=== PATIENT | male | born 1940 | race Caucasian/White ===

== ENCOUNTER 2018-07-09 07:59 | Inpatient (IN) | payer MEDICARE ==
--- NOTE | 2018-07-09 08:33 | RADIOLOGY REPORT (SQ) ---
EXAM DESCRIPTION: CHEST SINGLE VIEW COMPLETED DATE/TIME: 07/09/2018 8:21 am REASON FOR STUDY: bed 20 sepsis protocol COMPARISON: 01/09/2014 EXAM PARAMETERS: NUMBER OF VIEWS: One view. TECHNIQUE: Single frontal radiographic view of the chest acquired. RADIATION DOSE: NA LIMITATIONS: None. FINDINGS: LUNGS AND PLEURA: No opacities, masses or pneumothorax. No pleural effusion. Multiple kathleen ateral calcified pleural plaques. MEDIASTINUM AND HILAR STRUCTURES: No masses. Contour normal. HEART AND VASCULAR STRUCTURES: Heart normal in size. Normal vasculature. BONES: No acute findings. HARDWARE: None in the chest. OTHER: No other significant finding. IMPRESSION: No acute abnormality of the lungs. No focal airspace opacity. Multiple bilateral calci fied pleural plaques, in keeping with prior asbestos exposure. TECHNICAL DOCUMENTATION: JOB ID: [id number] [employer]- All Rights Reserved Reading location - IP/workstation name: [email or web address]
[2018-07-09] MEDS ORDERED: MAGNESIUM SULFATE/D5W 1 GM/100 ML RTUPB IV ONE (08:47)
--- NOTE | 2018-07-09 08:48 | ER Document Report ---
ED General - General Chief Complaint: Shortness Of Breath Stated Complaint: SHORTNESS OF BREATH Time Seen by Provider: 07/09/18 08:03 Notes: Patient is a 77-year-old male that presents to the emergency department for chief complaint of shortness of breath. Patient states he woke up this morning feeling very short of breath and having a difficult time breathing, he went to use his albuterol inhaler or nebulizer and he was out of his medications, so he decided to come to the emergency department he called EMS. He has a history of COPD, he does not wear oxygen however. He has had flares of his COPD in the past and this feels similar to that. He denies noting any recent fevers, chills, night sweats, nausea, vomiting, chest pain or abdominal pain. He denies any other complaints at this time. He was given 2 DuoNeb breathing treatments by EMS, and per EMS documentation, he was noted to be 85% on room air and increased work of breathing, he was placed on supplemental oxygen, and came up to 95%. They also administered 125 mg of Solu-Medrol IV. Past Medical History: COPD, peripheral vascular disease, hypertension Past Surgical History: Bilateral femoral artery stenting Social History: Admits to smoking cigarettes daily, denies alcohol or drug use. His primary care physician is Dr. Zavala Family History: Reviewed and noncontributory for presenting illness Allergies: Reviewed, see documented allergy list. REVIEW OF SYSTEMS: Other than noted above, the 12 point review of systems was reviewed with the patient and were negative, all pertinent findings are included in the HPI. PHYSICAL EXAMINATION: Vital signs reviewed, nursing noted reviewed. GENERAL: Elderly male, in mild to moderate respiratory distress, accessory muscle use HEAD: Atraumatic, normocephalic. EYES: Eyes appear normal, extraocular movements intact, sclera anicteric, conjunctiva are normal. ENT: nares patent, oropharynx clear without exudates. Moist mucous membranes. NECK: Normal range of motion, supple without lymphadenopathy LUNGS: Coarse lung sounds noted throughout all bright, rhonchi and wheezing. HEART: Heart rate tachycardic, regular rhythm ABDOMEN: Soft, nontender, normoactive bowel sounds. No rebound, guarding, or rigidity. No masses appreciated. EXTREMITIES: Nontender, good range of motion, no pitting or edema. NEUROLOGICAL: No focal neurological deficits. Moves all extremities spontaneously Motor and sensory grossly intact on exam. PSYCH: Mildly anxious, conversational dyspnea, but appropriate SKIN: Warm, Dry, normal turgor, no rashes or lesions noted on exposed skin TRAVEL OUTSIDE OF THE [place] IN LAST 30 DAYS: No - Related Data Allergies/Adverse Reactions: No Known Allergies Allergy (Verified 01/09/14 03:50) Past Medical History - Social History Smoking Status: Current Every Day Smoker Family History: Reviewed & Not Pertinent - Past Medical History Cardiac Medical History: Reports: Hx Hypertension Pulmonary Medical History: Reports: Hx COPD Denies: Hx Tuberculosis - Immunizations Hx Diphtheria, Pertussis, Tetanus Vaccination: No Hx Pneumococcal Vaccination: 04/06/12 Physical Exam - Vital signs Vitals: Resp 30 H 07/09/18 08:04 Course - Re-evaluation Re-evalutation: Patient seen and examined vital signs reviewed. Laboratory data and imaging were ordered as appropriate for the patient's presenting symptoms and complaint, with consideration of any critical or life threatening conditions that may be associated with their obtained history and exam as noted above. Patient was treated with IV Solu-Medrol 125 mg and DuoNeb breathing treatments by EMS, will give him IV magnesium, and a dose of inhaled budesonide. Results were reviewed when available and demonstrated mild leukocytosis and mild anemia, chest x-ray negative for focal pneumonia. His lactate came back at 4.0, however I do not feel that the patient is septic, he has no source of infection, he does have Sirs criteria, tachycardia, however he was just given DuoNeb breathing treatments prior to ED arrival, and his heart rate has come down over his ED course, his blood pressure has been stable, he is been stable on nasal cannula, without worsening or increased respiratory distress. Sepsis has been ruled out, no antibiotics warranted at this time, nor is IV fluid bolusing, as I feel it would further deteriorate the patient's condition. The patient was re-evaluated and was improved after treatments, but still requiring supplemental oxygen, which he has not on at baseline, I feel that the patient should be admitted to the hospital, for continued treatment of his acute exacerbation of COPD/acute on chronic respiratory failure with hypoxia Evaluation was most consistent with acute on chronic respiratory failure. Results were discussed with the patient at this point after careful consideration I feel that that patient should be admitted to the hospital. This was discussed with the patient that it is in the best interest for their care to be admitted for further evaluation and management. Patient agreed with this plan of care. A call was placed to the admitted physician, Dr. Drew who graciously accepted the patient onto their service. *Note is created using voice recognition software and may contain spelling, syntax or grammatical errors. Laboratory 07/09/18 07/09/18 07/09/18 09:20 09:20 09:20 WBC 11.6 H RBC 4.32 L Hgb 13.3 L Hct 39.5 MCV 91 MCH 30.8 MCHC 33.6 RDW 15.3 H Plt Count 259 Seg Neutrophils % 86.0 H Lymphocytes % 8.6 L Monocytes % 4.6 Eosinophils % 0.6 Basophils % 0.2 Absolute Neutrophils 10.0 H Absolute Lymphocytes 1.0 Absolute Monocytes 0.5 Absolute Eosinophils 0.1 Absolute Basophils 0.0 PT 13.9 INR 1.02 VBG pH VBG pCO2 VBG HCO3 VBG Base Excess Sodium 141.1 Potassium 3.8 Chloride 107 Carbon Dioxide 21 L Anion Gap 13 BUN 13 Creatinine 0.93 Est GFR ( Amer) > 60 Est GFR (Non-Af Amer) > 60 Glucose 132 H Lactic Acid Calcium 9.5 Total Bilirubin 2.2 H Direct Bilirubin 1.3 H Neonat Total Bilirubin Not Reportable Neonat Direct Bilirubin Not Reportable Neonat Indirect Bili Not Reportable AST 21 ALT 26 Alkaline Phosphatase 125 Total Protein 6.5 Albumin 4.1 07/09/18 07/09/18 09:20 09:20 WBC RBC Hgb Hct MCV MCH MCHC RDW Plt Count Seg Neutrophils % Lymphocytes % Monocytes % Eosinophils % Basophils % Absolute Neutrophils Absolute Lymphocytes Absolute Monocytes Absolute Eosinophils Absolute Basophils PT INR VBG pH 7.28 L VBG pCO2 52.3 VBG HCO3 23.9 VBG Base Excess -3.5 Sodium Potassium Chloride Carbon Dioxide Anion Gap BUN Creatinine Est GFR ( Amer) Est GFR (Non-Af Amer) Glucose Lactic Acid 4.0 H Calcium Total Bilirubin Direct Bilirubin Neonat Total Bilirubin Neonat Direct Bilirubin Neonat Indirect Bili AST ALT Alkaline Phosphatase Total Protein Albumin Chest X-Ray 07/09/18 08:00 IMPRESSION: No acute abnormality of the lungs. No focal airspace opacity. Multiple bilateral calcified pleural plaques, in keeping with prior asbestos exposure. - Vital Signs Vital signs: Temp Pulse Resp BP Pulse Ox 97.9 F 91 16 152/49 H 93 07/09/18 16:45 07/09/18 19:42 07/09/18 19:42 07/09/18 16:45 07/09/18 19:42 - Laboratory Result Diagrams: 07/09/18 09:20 07/09/18 09:20 Laboratory results interpreted by me: 07/09/18 07/09/18 07/09/18 09:20 09:20 09:20 WBC 11.6 H RBC 4.32 L Hgb 13.3 L RDW 15.3 H Seg Neutrophils % 86.0 H Lymphocytes % 8.6 L Absolute Neutrophils 10.0 H VBG pH Carbon Dioxide 21 L Glucose 132 H Lactic Acid 4.0 H Total Bilirubin 2.2 H Direct Bilirubin 1.3 H 07/09/18 09:20 WBC RBC Hgb RDW Seg Neutrophils % Lymphocytes % Absolute Neutrophils VBG pH 7.28 L Carbon Dioxide Glucose Lactic Acid Total Bilirubin Direct Bilirubin - EKG Interpretation by Me Additional EKG results interpreted by me: EKG demonstrates sinus rhythm with a ventricular rate of 95 bpm, presence of right bundle branch block and left posterior fascicular block, with right axis deviation, QTC 463 ms, there are slight ST depressions in leads III, II, and aVF, this is compared with prior EKG, from 01/09/2014, without significant change. Discharge - Discharge Clinical Impression: Acute and chronic respiratory failure Qualifiers: Respiratory failure complication: hypoxia Qualified Code(s): J96.21 - Acute and chronic respiratory failure with hypoxia Leukocytosis Qualifiers: Leukocytosis type: unspecified Qualified Code(s): D72.829 - Elevated white blood cell count, unspecified Condition: Stable Disposition: ADMITTED INPATIENT Admitting Provider: Hospitalist - Dr. Cain Drew Unit Admitted: Telemetry
[2018-07-09 09:53] LABS: ABSOLUTE EOSINOPHILS # (AUTO) 0.1 10^3/uL (0.0-0.6); ABSOLUTE MONOCYTES (AUTO) 0.5 10^3/uL (0.1-1.4); BASOPHILS % (AUTO) 0.2 % (0-2); EOSINOPHILS % (AUTO) 0.6 % (0-6); HEMATOCRIT 39.5 % (37.9-51.0); HEMOGLOBIN 13.3 g/dL (13.5-17.0); LYMPHOCYTES % (AUTO) 8.6 % (13-45); MEAN CORPUSCULAR HEMOGLOBIN 30.8 pg (27.0-33.4); MEAN CORPUSCULAR HGB CONC 33.6 g/dL (32.0-36.0); MEAN CORPUSCULAR VOLUME 91 fl (80-97); MONOCYTES % (AUTO) 4.6 % (3-13); PLATELET COUNT 259 10^3/uL (150-450); RED BLOOD COUNT 4.32 10^6/uL (4.35-5.55); RED CELL DISTRIBUTION WIDTH 15.3 % (11.5-14.0); TOTAL CELLS COUNTED % (AUTO) 100 %; WHITE BLOOD COUNT 11.6 10^3/uL (4.0-10.5)
[2018-07-09 09:57] LABS: INTERNATIONAL RATION (INR) 1.02; PROTHROMBIN TIME 13.9 SEC (11.4-15.4)
[2018-07-09 09:58] LABS: VENOUS BLOOD BASE EXCESS -3.5 mmol/L; VENOUS BLOOD HCO3 23.9 mmol/L (20-32); VENOUS BLOOD PCO2 52.3 mmHg (35-63); VENOUS BLOOD PH 7.28 (7.30-7.42)
[2018-07-09 10:23] LABS: ALANINE AMINOTRANSFERASE 26 U/L (21-72); ALBUMIN 4.1 g/dL (3.5-5.0); ALKALINE PHOSPHATASE 125 U/L (38-126); ANION GAP 13 (5-19); ASPARTATE AMINO TRANSFERASE 21 U/L (17-59); BILIRUBIN,DIRECT 1.3 mg/dL (0.0-0.4); BILIRUBIN,TOTAL 2.2 mg/dL (0.2-1.3); BLOOD UREA NITROGEN 13 mg/dL (7-20); CALCIUM 9.5 mg/dL (8.4-10.2); CARBON DIOXIDE 21 mmol/L (22-30); CHLORIDE 107 mmol/L (98-107); GLUCOSE 132 mg/dL (75-110); POTASSIUM 3.8 mmol/L (3.6-5.0); SODIUM 141.1 mmol/L (137-145); TOTAL PROTEIN 6.5 g/dL (6.3-8.2)
[2018-07-09] MEDS ORDERED: BUDESONIDE NEB 0.5 MG/2 ML AMPUL NEB ONE (10:27)
[2018-07-09] MEDS ORDERED: ALBUTEROL SULFATE 0.083% NEB 2.5 MG/3 ML AMPUL NEB PRN (11:32)
[2018-07-09] MEDS ORDERED: NORMAL SALINE 1000 ML 1,000 ML IV PRN (11:33)
[2018-07-09 11:53] LABS: APPEARANCE,URINE CLEAR; BILIRUBIN,URINE SMALL (NEGATIVE); COLOR,URINE AMBER; GLUCOSE, URINE NEGATIVE (NEGATIVE); KETONES,URINE NEGATIVE (NEGATIVE); LEUKOCYTE ESTERASE,URINE NEGATIVE (NEGATIVE); NITRITE,URINE NEGATIVE (NEGATIVE); PROTEIN,URINE 30 mg/dL (NEGATIVE); URINE SPECIFIC GRAVITY 1.023
[2018-07-09 12:51] LABS: A TYPE INFLUENZA AG NEGATIVE (NEGATIVE); B INFLUENZA AG NEGATIVE (NEGATIVE)
--- NOTE | 2018-07-09 13:19 | PDOC H&P ---
History of Present Illness Admission Date/PCP: 07/09/18 11:04 Patient complains of: SOB, wheezing History of Present Illness: DELMY HALL is a 77 year old male with a past medical history of hypertension, chronic low back pain, COPD on home oxygen, chronic smoker and peripheral vascular disease status post bilateral femoral stenting who presented with increasing shortness of breath and wheezing. Patient says that he started having progressive shortness of breath last night associated with wheezing. He does have minimally productive cough. He denies fever or chills. He does say his had pneumonia last week. He denies chest pain, palpitations, nausea or dizziness. He was brought in by EMS and received breathing treatments and IV steroids en route. He did have hypoxia with a saturation of 85% on room air. He was placed on 3 L and his O2 sat improved in the ER to 95%. Patient did say that he feels better after the breathing treatments and steroids. Past Medical History Cardiac Medical History: Reports: Hypertension Pulmonary Medical History: Reports: Chronic Obstructive Pulmonary Disease (COPD) Denies: Tuberculosis Social History Smoking Status: Current Some Day Smoker Frequency of Alcohol Use: None Hx Recreational Drug Use: No Hx Prescription Drug Abuse: No Family History Family History: Reviewed & Not Pertinent Parental Family History Reviewed: Yes - no premature CAD Children Family History Reviewed: No Sibling(s) Family History Reviewed.: No Medication/Allergy Home Medications: Amlodipine Besylate [Norvasc 10 mg Tablet] 10 mg PO DAILY 07/09/18 Aspirin [Adult Low Dose Aspirin EC] 81 mg PO DAILY 07/09/18 Metoprolol Succinate [Toprol Xl] 25 mg PO Q12 07/09/18 Morphine Sulfate [Morphine Ir 30 mg Tablet] 30 mg PO Q8 07/09/18 Allergies/Adverse Reactions: No Known Allergies Allergy (Verified 01/09/14 03:50) Review of Systems All systems: reviewed and no additional remarkable complaints except as stated - as mentioned in HPI Physical Exam Vital Signs: Temp Pulse Resp BP Pulse Ox 99.4 F 30 H 139/50 H 96 07/09/18 10:43 07/09/18 12:01 07/09/18 12:01 07/09/18 12:01 Intake & Output 07/08/18 07/09/18 07/10/18 06:59 06:59 06:59 Intake Total 100 Balance 100 Weight 163 lb 12.855 oz General appearance: PRESENT: no acute distress, well-developed, well-nourished Head exam: PRESENT: atraumatic, normocephalic Eye exam: PRESENT: conjunctiva pink, EOMI, PERRLA. ABSENT: scleral icterus Mouth exam: PRESENT: moist, tongue midline Neck exam: ABSENT: carotid bruit, JVD, lymphadenopathy, thyromegaly Respiratory exam: PRESENT: wheezes. ABSENT: rales, rhonchi Pulses: PRESENT: normal dorsalis pedis pul GI/Abdominal exam: PRESENT: normal bowel sounds, soft. ABSENT: distended, guarding, mass, organolmegaly, rebound, tenderness Rectal exam: PRESENT: deferred Extremities exam: PRESENT: full ROM. ABSENT: calf tenderness, clubbing, pedal edema Neurological exam: PRESENT: alert, awake, oriented to person, oriented to place, oriented to time, oriented to situation, CN II-XII grossly intact. ABSENT: motor sensory deficit Results Laboratory Results: 07/09/18 09:20 07/09/18 09:20 07/09/18 07/09/18 07/09/18 09:20 09:20 09:20 WBC 11.6 H RBC 4.32 L Hgb 13.3 L Hct 39.5 MCV 91 MCH 30.8 MCHC 33.6 RDW 15.3 H Plt Count 259 Seg Neutrophils % 86.0 H Lymphocytes % 8.6 L Monocytes % 4.6 Eosinophils % 0.6 Basophils % 0.2 Absolute Neutrophils 10.0 H Absolute Lymphocytes 1.0 Absolute Monocytes 0.5 Absolute Eosinophils 0.1 Absolute Basophils 0.0 VBG pH VBG pCO2 VBG HCO3 VBG Base Excess Sodium 141.1 Potassium 3.8 Chloride 107 Carbon Dioxide 21 L Anion Gap 13 BUN 13 Creatinine 0.93 Est GFR ( Amer) > 60 Est GFR (Non-Af Amer) > 60 Glucose 132 H Lactic Acid 4.0 H Calcium 9.5 Total Bilirubin 2.2 H AST 21 ALT 26 Alkaline Phosphatase 125 Total Protein 6.5 Albumin 4.1 Urine Color Urine Appearance Urine pH Ur Specific [place] Urine Protein Urine Glucose (UA) Urine Ketones Urine Blood Urine Nitrite Ur Leukocyte Esterase Urine WBC (Auto) Urine RBC (Auto) 07/09/18 07/09/18 09:20 11:33 WBC RBC Hgb Hct MCV MCH MCHC RDW Plt Count Seg Neutrophils % Lymphocytes % Monocytes % Eosinophils % Basophils % Absolute Neutrophils Absolute Lymphocytes Absolute Monocytes Absolute Eosinophils Absolute Basophils VBG pH 7.28 L VBG pCO2 52.3 VBG HCO3 23.9 VBG Base Excess -3.5 Sodium Potassium Chloride Carbon Dioxide Anion Gap BUN Creatinine Est GFR ( Amer) Est GFR (Non-Af Amer) Glucose Lactic Acid Calcium Total Bilirubin AST ALT Alkaline Phosphatase Total Protein Albumin Urine Color JOSE Urine Appearance CLEAR Urine pH 5.0 Ur Specific [place] 1.023 Urine Protein 30 H Urine Glucose (UA) NEGATIVE Urine Ketones NEGATIVE Urine Blood NEGATIVE Urine Nitrite NEGATIVE Ur Leukocyte Esterase NEGATIVE Urine WBC (Auto) 1 Urine RBC (Auto) 1 Impressions: Chest X-Ray 07/09/18 08:00 IMPRESSION: No acute abnormality of the lungs. No focal airspace opacity. Multiple bilateral calcified pleural plaques, in keeping with prior asbestos exposure. Assessment & Plan - Diagnosis (1) Acute respiratory failure with hypoxia and hypercapnia Is this a current diagnosis for this admission?: Yes Plan: Secondary to COPD exacerbation. Currently saturating well on 3 L of O2 via [place]. (2) COPD exacerbation Is this a current diagnosis for this admission?: Yes Plan: Will continue IV steroids. Add scheduled breathing treatments and azithromycin. He still has bilateral wheezing but he appears more comfortable now than when he came in. (3) Hypertension Is this a current diagnosis for this admission?: Yes Plan: Patient takes amlodipine 10 mg daily at home. Will resume medication once home meds are verified. - Time Time Spent: 30 to 50 Minutes
--- NOTE | 2018-07-09 13:39 | EKG REPORT ---
SEVERITY:- ABNORMAL ECG - SINUS RHYTHM ATRIAL PREMATURE COMPLEX LEFT ATRIAL ABNORMALITY RBBB AND LPFB : Confirmed by: Ana Hardwick MD 09-Jul-2018 13:38:25
[2018-07-09] MEDS: IPRATROPIUM/ALBUTEROL 0.5-2.5 MG/3 ML AMPUL NEB SCH ×2 (13:44→19:42)
[2018-07-09] MEDS: METHYLPREDNISOLONE INJ 40 MG/1 ML SDV IV SCH ×2 (14:08→22:22)
[2018-07-09] MEDS: AZITHROMYCIN 250 MG TABLET PO SCH (14:09)
[2018-07-09] MEDS ORDERED: MORPHINE SULFATE IR 30 MG TABLET PO ONE (14:22)
[2018-07-09] MEDS ORDERED: NORMAL SALINE 1000 ML 1,000 ML IV ONE (19:05)
[2018-07-09] MEDS: MORPHINE SULFATE IR 30 MG TABLET PO PRN (22:21)
[2018-07-09] MEDS: CEFTRIAXONE 1 GM/D5W RTU 1 GM/50 ML RTUPB IV SCH (22:22)
[2018-07-09] MEDS: HEPARIN SOD (PORCINE) 5,000 UNIT/ML 1 ML SYRINGE SUBCUT SCH (22:23)
[2018-07-10] MEDS: IPRATROPIUM/ALBUTEROL 0.5-2.5 MG/3 ML AMPUL NEB SCH ×4 (02:34→20:54)
[2018-07-10] MEDS: METHYLPREDNISOLONE INJ 40 MG/1 ML SDV IV SCH ×3 (05:28→21:09)
[2018-07-10] MEDS: MORPHINE SULFATE IR 30 MG TABLET PO PRN ×3 (08:00→22:14)
[2018-07-10] MEDS ORDERED: AMLODIPINE BESYLATE 10 MG TABLET PO SCH (10:00)
--- NOTE | 2018-07-10 12:03 | PDOC PROGRESS REPORT ---
Subjective Progress Note for:: 07/10/18 Subjective:: DELMY HALL is a 77 year old male with a past medical history of hypertension, chronic low back pain, COPD on home oxygen, chronic smoker and peripheral vascular disease status post bilateral femoral stenting who presented with increasing shortness of breath and wheezing. No acute event overnight but he say he is feeling much better today but is not at his baseline yet. No fever or chills. Denies chest pain, dizziness or palpitations. Reason For Visit: COPD EXACERBATION Physical Exam Vital Signs: Temp Pulse Resp BP Pulse Ox 98.8 F 83 18 139/49 H 96 07/10/18 07:39 07/10/18 08:34 07/10/18 08:34 07/10/18 07:39 07/10/18 08:34 Intake & Output 07/09/18 07/10/18 07/11/18 06:59 06:59 06:59 Intake Total 2150 Output Total 300 Balance 1850 Weight 141 lb 1.533 oz General appearance: PRESENT: no acute distress, well-developed, well-nourished Head exam: PRESENT: atraumatic, normocephalic Eye exam: PRESENT: conjunctiva pink, EOMI, PERRLA. ABSENT: scleral icterus Ear exam: PRESENT: normal external ear exam Mouth exam: PRESENT: moist, tongue midline Neck exam: ABSENT: carotid bruit, JVD, lymphadenopathy, thyromegaly Respiratory exam: PRESENT: rhonchi, wheezes - occasional wheezes bilaterally, much improved today. ABSENT: rales Cardiovascular exam: PRESENT: RRR. ABSENT: diastolic murmur, rubs, systolic murmur Pulses: PRESENT: normal dorsalis pedis pul GI/Abdominal exam: PRESENT: normal bowel sounds, soft. ABSENT: distended, guarding, mass, organolmegaly, rebound, tenderness Rectal exam: PRESENT: deferred Neurological exam: PRESENT: alert, awake, oriented to person, oriented to place, oriented to time, oriented to situation, CN II-XII grossly intact. ABSENT: motor sensory deficit Results Laboratory Results: 07/09/18 09:20 07/09/18 09:20 07/09/18 07/09/18 07/09/18 11:33 13:44 16:04 Lactic Acid 5.9 H 5.8 H Urine Color JOSE Urine Appearance CLEAR Urine pH 5.0 Ur Specific [place] 1.023 Urine Protein 30 H Urine Glucose (UA) NEGATIVE Urine Ketones NEGATIVE Urine Blood NEGATIVE Urine Nitrite NEGATIVE Ur Leukocyte Esterase NEGATIVE Urine WBC (Auto) 1 Urine RBC (Auto) 1 07/10/18 05:23 Lactic Acid 1.1 Urine Color Urine Appearance Urine pH Ur Specific [place] Urine Protein Urine Glucose (UA) Urine Ketones Urine Blood Urine Nitrite Ur Leukocyte Esterase Urine WBC (Auto) Urine RBC (Auto) Impressions: Chest X-Ray 07/09/18 08:00 IMPRESSION: No acute abnormality of the lungs. No focal airspace opacity. Multiple bilateral calcified pleural plaques, in keeping with prior asbestos exposure. Assessment & Plan - Diagnosis (1) Acute respiratory failure with hypoxia and hypercapnia Is this a current diagnosis for this admission?: Yes Plan: Secondary to COPD exacerbation. Currently saturating well on 3 L of O2 via NC. (2) COPD exacerbation Is this a current diagnosis for this admission?: Yes Plan: Improving. Will continue IV steroids. Continue scheduled breathing treatments and azithromycin. His wheezing has significantly improved. (3) Hypertension Is this a current diagnosis for this admission?: Yes Plan: BP running in the 130 systolic. Continue amlodipine 10 mg daily. (4) Lactic acidosis Is this a current diagnosis for this admission?: Yes Plan: Resolved. Likely related to hypoxia. - Time Time Spent with patient: 15-24 minutes
[2018-07-10] MEDS: ASPIRIN 81 MG TABLET, ENT COATED PO SCH (13:11)
[2018-07-10] MEDS: AZITHROMYCIN 250 MG TABLET PO SCH (13:11)
[2018-07-10] MEDS: HEPARIN SOD (PORCINE) 5,000 UNIT/ML 1 ML SYRINGE SUBCUT SCH ×2 (13:13→21:09)
[2018-07-10] MEDS: AMLODIPINE BESYLATE 10 MG TABLET PO SCH (13:13)
[2018-07-10] MEDS ORDERED: DIPHENHYDRAMINE HCL 50 MG/ML VIAL ONE (15:44)
[2018-07-10] MEDS: CEFTRIAXONE 1 GM/D5W RTU 1 GM/50 ML RTUPB IV SCH (21:08)
[2018-07-11] MEDS: IPRATROPIUM/ALBUTEROL 0.5-2.5 MG/3 ML AMPUL NEB SCH ×3 (01:08→14:49)
[2018-07-11] MEDS ORDERED: NITROGLYCERIN 0.4 MG/TAB 25 TAB/BOTTLE SL PRN (01:56)
[2018-07-11] MEDS ORDERED: NITROGLYCERIN 0.4 MG/TAB 25 TAB/BOTTLE ONE (02:00)
[2018-07-11 02:51] LABS: CREATINE KINASE MB 1.49 ng/mL (<4.55)
[2018-07-11 02:54] LABS: TROPONIN I < 0.012 ng/mL
[2018-07-11] MEDS: METHYLPREDNISOLONE INJ 40 MG/1 ML SDV IV SCH ×2 (05:27→14:08)
[2018-07-11] MEDS: MORPHINE SULFATE IR 30 MG TABLET PO PRN ×2 (06:17→14:08)
[2018-07-11 09:21] LABS: CREATINE KINASE MB 1.16 ng/mL (<4.55); TROPONIN I 0.013 ng/mL
[2018-07-11] MEDS: AMLODIPINE BESYLATE 10 MG TABLET PO SCH (09:54)
[2018-07-11] MEDS: ASPIRIN 81 MG TABLET, ENT COATED PO SCH (09:54)
[2018-07-11] MEDS: AZITHROMYCIN 250 MG TABLET PO SCH (09:55)
[2018-07-11] MEDS: HEPARIN SOD (PORCINE) 5,000 UNIT/ML 1 ML SYRINGE SUBCUT SCH (09:55)
[2018-07-11] MEDS ORDERED: NICOTINE 14 MG/24 HR PATCH.TD24 TD SCH (11:15)
--- NOTE | 2018-07-11 12:42 | EKG REPORT ---
SEVERITY:- ABNORMAL ECG - SINUS TACHYCARDIA WITH IRREGULAR RATE [id number] DEPRESSION, CONSIDER ISCHEMIA, ANT-LAT LDS : Confirmed by: Ana Hardwick MD 11-Jul-2018 12:41:22
--- NOTE | 2018-07-11 12:42 | EKG REPORT ---
SEVERITY:- ABNORMAL ECG - SINUS RHYTHM RIGHT BUNDLE BRANCH BLOCK : Confirmed by: Ana Hardwick MD 11-Jul-2018 12:41:26
[2018-07-11 14:15] VITALS: BP 139/50
[2018-07-11 16:10] LABS: CREATINE KINASE MB 1.04 ng/mL (<4.55)
[2018-07-11 16:13] LABS: TROPONIN I < 0.012 ng/mL
--- NOTE | 2018-07-11 19:22 | PDOC DISCHARGE SUMMARY ---
General - Admit/Disc Date/PCP Admission Date/Primary Care Provider: 07/09/18 11:04 Discharge Date: 07/11/18 - Discharge Diagnosis (1) Acute respiratory failure with hypoxia and hypercapnia Is this a current diagnosis for this admission?: Yes (2) COPD exacerbation Is this a current diagnosis for this admission?: Yes (3) Hypertension Is this a current diagnosis for this admission?: Yes (4) Lactic acidosis Is this a current diagnosis for this admission?: Yes - Additional Information Prescriptions: Albuterol Sulfate [Proventil 0.5% Neb 2.5 mg/0.5 ml Vial.neb] 2.5 mg NEB Q6HP PRN #20 vial.neb PRN Reason: Fluticasone/Salmeterol [Fluticasone-Salmeterol 232-14] 1 each IH BID #1 aer.pow.ba Nicotine [Nicoderm 14 mg/24 Hr Transdermal Patch] 1 each TD DAILY #14 patch.td24 Prednisone [Deltasone 20 mg Tablet] 20 mg PO BID 5 Days #10 tablet Tiotropium Sims [Spiriva Respimat] 4 gm IH DAILY #1 mist.inhal Home Medications: Amlodipine Besylate [Norvasc 10 mg Tablet] 10 mg PO DAILY 07/09/18 Aspirin [Adult Low Dose Aspirin EC] 81 mg PO DAILY 07/09/18 Metoprolol Succinate [Toprol Xl] 25 mg PO Q12 07/09/18 Morphine Sulfate [Morphine Ir 30 mg Tablet] 30 mg PO Q8 07/09/18 Albuterol Sulfate [Proventil 0.5% Neb 2.5 mg/0.5 ml Vial.neb] 2.5 mg NEB Q6HP PRN #20 vial.neb 07/11/18 Fluticasone/Salmeterol [Fluticasone-Salmeterol 232-14] 1 each IH BID #1 aer.pow.ba 07/11/18 Nicotine [Nicoderm 14 mg/24 Hr Transdermal Patch] 1 each TD DAILY #14 patch.td24 07/11/18 Prednisone [Deltasone 20 mg Tablet] 20 mg PO BID 5 Days #10 tablet 07/11/18 Tiotropium Sims [Spiriva Respimat] 4 gm IH DAILY #1 mist.inhal 07/11/18 History of Present Illness History of Present Illness: Admitting hospitalist's H&P: DELMY HALL is a 77 year old male with a past medical history of hypertension, chronic low back pain, COPD on home oxygen, chronic smoker and peripheral vascular disease status post bilateral femoral stenting who presented with increasing shortness of breath and wheezing. Patient says that he started having progressive shortness of breath last night associated with wheezing. He does have minimally productive cough. He denies fever or chills. He does say his had pneumonia last week. He denies chest pain, palpitations, nausea or dizziness. He was brought in by EMS and received breathing treatments and IV steroids en route. He did have hypoxia with a saturation of 85% on room air. He was placed on 3 L and his O2 sat improved in the ER to 95%. Patient did say that he feels better after the breathing treatments and steroids. Hospital Course Hospital Course: DELMY HALL is a 77 year old male with a past medical history of hypertension, chronic low back pain, COPD on home oxygen, chronic smoker and peripheral vascular disease status post bilateral femoral stenting who presented with increasing shortness of breath and wheezing. He was admitted for COPD exacerbation. He was started on IV steroids and breathing treatments. He improved significantly and returned to his baseline on day of discharge. He will be given a short course of oral steroids. He says he was on Advair before but did not comply to this. He was given a script for generic salmeterol-fluticasone inhaler. He stills smokes (but is going down on it) up to half a pack a day and was counseled on smoking cessation. Physical Exam Vital Signs: Temp Pulse Resp BP Pulse Ox 98.7 F 75 16 139/50 H 90 L 07/11/18 12:28 07/11/18 14:51 07/11/18 14:51 07/11/18 12:28 07/11/18 14:51 Intake & Output 07/10/18 07/11/18 07/12/18 06:59 06:59 06:59 Intake Total 2150 998 470 Output Total 300 800 Balance 1850 198 470 Weight 141 lb 1.533 oz 137 lb 2.04 oz General appearance: PRESENT: no acute distress, well-developed, well-nourished Head exam: PRESENT: atraumatic, normocephalic Eye exam: PRESENT: conjunctiva pink, EOMI, PERRLA. ABSENT: scleral icterus Ear exam: PRESENT: normal external ear exam Neck exam: ABSENT: carotid bruit, JVD, lymphadenopathy, thyromegaly Respiratory exam: PRESENT: rhonchi. ABSENT: rales, wheezes Cardiovascular exam: PRESENT: RRR. ABSENT: diastolic murmur, rubs, systolic murmur Pulses: PRESENT: normal dorsalis pedis pul GI/Abdominal exam: PRESENT: normal bowel sounds, soft. ABSENT: distended, guarding, mass, organolmegaly, rebound, tenderness Rectal exam: PRESENT: deferred Extremities exam: PRESENT: full ROM. ABSENT: calf tenderness, clubbing, pedal edema Neurological exam: PRESENT: alert, awake, oriented to person, oriented to place, oriented to time, oriented to situation, CN II-XII grossly intact. ABSENT: motor sensory deficit Results Laboratory Results: 07/09/18 09:20 07/09/18 09:20 07/09/18 11:33 Clean Catch Midstream Urine Culture - Final NO GROWTH 2 DAYS 07/11/18 07/11/18 07/11/18 02:14 02:14 08:30 Creatine Kinase 51 L 40 L CK-MB (CK-2) 1.49 Troponin I < 0.012 07/11/18 08:30 Creatine Kinase CK-MB (CK-2) 1.16 Troponin I 0.013 Impressions: Chest X-Ray 07/09/18 08:00 IMPRESSION: No acute abnormality of the lungs. No focal airspace opacity. Multiple bilateral calcified pleural plaques, in keeping with prior asbestos exposure. Qualifiers - * PATIENT BEING DISCHARGED WITH ANY OF THE FOLLOWING DIAGNOSIS: No
== END 2018-07-11 16:09 | disposition home or self-care (01) | DRG 189 ==
LOC: ER 07:59 → INTOOBSV 11:04 → OBSVTOIN 11:04 → EH 11:04 → 3S 16:28
PROVIDERS: ADMIT Hospitalist; ATTEND Hospitalist
DX: J96.21 Acute and chronic respiratory failure with hypoxia (principal); J44.1 Chronic obstructive pulmonary disease with (acute) exacerbation; E87.2 Acidosis; J96.22 Acute and chronic respiratory failure with hypercapnia; I73.9 Peripheral vascular disease, unspecified; I10 Essential (primary) hypertension; F17.210 Nicotine dependence, cigarettes, uncomplicated
CPT/HCPCS: 36415; 71045; 80053; 81001; 82550; 82553; 82803; 83605; 84484; 85025; 85610; 87040; 87070; 87086; 87205; 87804; 93005; 93010; 94640; 96365; 99285; G0378; J0696; J1644; J2920; J3475; J3490; J7030; J7620